=== PATIENT | female | born 1990 | race Caucasian/White ===

== ENCOUNTER 2021-02-20 02:41 | Inpatient (IN) | payer MEDICAID ==
[~2021-02-20] VITALS: Ht 160 cm; Wt 56.0 kg
--- NOTE | 2021-02-20 02:48 | NUR ---
THIS IS A 30 YO F BIB EMS FROM [facility] W/ C/O LLQ ABD PAIN SINCE THURSDAY. PT STATES SAW OBGYN AND DX W/ OVARIAN CYST. PAIN WORSE STARTING YESTERDAY. PER EMS PT WAS DX W/ SMALL BOWEL MESENTERY ABNORMALITY WHICH TRANSFERRING FACILITY BELIEVES NEEDS FURTHER WORK UP AND POSSIBLE SURGERY. WANTED SURGERY TO BE DONE HERE D/T OBGYN CAPABILITIES. PT RESTING ON GURNEY W/ CALL LIGHT IN REACH AND SIDE RAILS UPX2. FAMILY AT BEDSIDE. ERP AT BEDSIDE. KRISTOPHER CARRASCO.
[2021-02-20] MEDS ORDERED: FLUT9.9S INH (02:59)
[2021-02-20] MEDS ORDERED: OMEP-110 PO (02:59)
[2021-02-20] MEDS ORDERED: OXYB10TA26 PO (02:59)
[2021-02-20] MEDS ORDERED: MONT10TA6 PO (02:59)
[2021-02-20] MEDS ORDERED: FLUT1DIS3 INH (02:59)
[2021-02-20] MEDS ORDERED: SERT50TA PO (02:59)
--- NOTE | 2021-02-20 03:00 | NUR ---
PT DECLINING PAIN MEDS AT THIS TIME STATES "I DON'T WANT ANY PAIN MEDS, I WANT TO BE ABLE TO TALK TO THE SURGEON". PT EDUCATED THAT IT MAY BE A FEW HOURS, PT DECISION UNCHANGED.
--- NOTE | 2021-02-20 03:03 | NUR ---
PT STATES LAST PO 02/19 @ 0900AM
--- NOTE | 2021-02-20 03:05 | NUR ---
REPORT TO [facility]CRUGGS.
--- NOTE | 2021-02-20 04:44 | NUR ---
PT AMBULATED TO RESTROOM AND BACK. TOLERATED WELL.
[2021-02-20] MEDS ORDERED: MELATONIN 5 MG TABLET PO PRN (05:00)
[2021-02-20] MEDS ORDERED: ONDANSETRON 2MG/ML, 2ML IVPush PRN (05:00)
[2021-02-20] MEDS ORDERED: BISACODYL 10 MG SUPP PR PRN (05:00)
[2021-02-20] MEDS ORDERED: LABETALOL 5MG/ML, 20ML IVPush PRN (05:00)
--- NOTE | 2021-02-20 05:00 | NUR ---
PT SWABBED FOR COVID-19 AND WALKED TO LAB.
--- NOTE | 2021-02-20 05:14 | NUR ---
Pt to be admitted to HOSPITAL, room 470. Report called to KAEL FULTON.
[2021-02-20 05:23] LABS: BASOPHILS % (AUTO) 1 % (0-1); EOSINOPHILS % (AUTO) 9 % (1-7); LYMPHOCYTES % (AUTO) 31 % (22-44); MEAN CORPUSCULAR HEMOGLOBIN 30.7 pg (27.0-34.8); MEAN CORPUSCULAR HGB CONC 34.1 g/dL (32.4-35.8); MEAN PLATELET VOLUME 6.7 fL (7.4-10.4); MONOCYTES % (AUTO) 6 % (2-9); NEUTROPHILS % (AUTO) 53 % (42-75); PLATELET COUNT 293 x10^3/uL (130-400); RED BLOOD COUNT 4.59 x10^6/uL (3.82-5.3); RED CELL DISTRIBUTION WIDTH 13.2 % (9.6-15.2)
[2021-02-20 05:29] LABS: ANION GAP 6 mmol/L (5-15); CALCIUM 7.9 mg/dL (8.5-10.1); CHLORIDE 106 mmol/L (98-107); CREATININE 0.66 mg/dL (0.55-1.02)
--- NOTE | 2021-02-20 05:40 | NUR ---
[facility] CANNOT GO UPSTAIRS. I RELAYED THIS MESSAGE TO THE PT AND AND SHE BEGAN TO RAISE HER VOICE. I CALMLY STATED " I WILL TALK TO MY CHARGE NURSE TO SEE IF ANYTHING CAN BE DONE." NOTIFIED CHARGE NURSE OF SITUATION AND CHARGE NURSE SPOKE WITH PT AND FAMILY MEMBER.
--- NOTE | 2021-02-20 05:56 | NUR ---
SPOKE WITH FAMILY AND PT AGAIN REGARDING THEIR DECISION TO GO UPSTAIRS AND PT RAISED HER VOICE AND SAID "I WILL NOT BE GETTING ANY PAIN MEDICINE EVEN THOUGH I'M IN PAIN BECAUSE I WON'T BE ABLE TO ADVOCATE FOR MYSELF!" I CALMY REPLIED IF YOUR PAIN HAS CHANGED YOU NEED TO MAKE ME AWARE BECAUSE WHEN I CHECKED ON YOU PREVIOUSLY YOU TOLD ME YOU WILL NOT BE HAVING ANY PAIN MEDICINE BECAUSE I CAN HAVE A BABY WITHOUT AN EPIDURAL." RELAYED THE MESSAGE TO MY CHARGE NURSE AND WILL SPEAK TO DECORATING CONSULTANT.
--- NOTE | 2021-02-20 06:06 | NUR ---
occupational health rn: spoke with patient and patient's regarding visitation policy. Patient upset that her is not able to go up to the floor at this time. Visiting hours are from [phone] on the surgical floor, where patient is being admitted. Surgery has not yet been determined for this patient as she is supposed to see the surgeon sometime this am before the decision is made. Advised we can provide a taxi voucher for patient's in the meantime. They disagreed, stating, "so what? We can go spend hundreds of dollars on a hotel?" Contacted surgical floor charge and linen room houseperson who both state that no exception will be made. Patient not agreeable to plan, requesting from primary RN that she wanted the number for the patient advocacy. rides supervisor contacted.
--- NOTE | 2021-02-20 06:56 | NUR ---
CARE TRANSFERED. REPROT GIVEN TO KAEL RODRIGUEZ
--- NOTE | 2021-02-20 07:35 | NUR ---
Bandage Wrapping Machine Operator: I spoke with this patient as she was refusing transport to admit bed on surgical. Pt stated that told her that she would "need surgery and her could stay the night with her", I apologized for the misleading information given by and explained our visitiation policy. Pt was very abbrasive and not amenable to discussion about her plan of care. Pt stated "my had this same surgery (she is here for evaluation of ovarian cyst) and that he was in a lot of pain and I need him to be here to advocate for me because I'll be on too much pain medication to advocate for myself." I assured her that we will do our best to control her pain without over medicating her, as is standard practice. When I inquired as to the whereabouts of the couple's children, since both parents are here, the patient became very defensive, yelling "I can't believe you would even ask that". The patient's stated that their children are safe with family. Pt states that she will not stay overnight and that she wants surgery done as an out-patient. I let her know that would be a discussion between her and the surgeon, who has not been by to consult at this time. Patient to be transported to Surgical via gurney with her .
--- NOTE | 2021-02-20 07:38 | NUR ---
HOUSE SUP, KAREN AT BEDSIDE.
--- NOTE | 2021-02-20 07:58 | NUR ---
PATIENT TRANSFERRED TO FLOOR IN STABLE CONDITION VIA GURNEY WITH PROFESSIONAL SPORTS SCOUT. ALL PATIENT BELONGINGS TAKEN TO FLOOR WITH PATIENT.
[2021-02-20 08:15] VITALS: BP 124/80
[2021-02-20] MEDS ORDERED: POTASSIUM CHLORIDE 40 MEQ in SODIUM CHLORIDE 0.9% 500 ML IV ONE (09:00)
[2021-02-20] MEDS: morphine SULFATE 10 MG/ML, 1ML IVPush PRN ×2 (12:29→14:09)
[2021-02-20] MEDS: FAMOTIDINE 20 MG/2 ML IVPush SCH ×2 (12:29→21:00)
[2021-02-20 12:32] LABS: HCG UR SG 1.022 (1.003-1.030)
[2021-02-20] MEDS: LACTATED RINGERS 1,000 ML IV SCH ×2 (12:37→22:20)
[2021-02-20 15:17] VITALS: BP 110/74
[2021-02-20] MEDS ORDERED: BUPIVACAINE/PF 0.5% ONE (16:45)
[2021-02-20] MEDS ORDERED: ONDANSETRON 2MG/ML, 2ML ONE (17:06)
[2021-02-20] MEDS ORDERED: ROCURONIUM 10MG/ML,5ML ONE (17:06)
[2021-02-20] MEDS ORDERED: NEOSTIGMINE 1 MG/ML, 10ML ONE (17:06)
[2021-02-20] MEDS ORDERED: GLYCOPYRROLATE 0.2MG/1ML, 5ML ONE (17:06)
[2021-02-20] MEDS ORDERED: DEXAMETHASONE 4 MG/ML, 1ML ONE (17:06)
[2021-02-20] MEDS ORDERED: CEFAZOLIN 1,000 MG ONE (17:06)
[2021-02-20] MEDS ORDERED: MIDAZOLAM 1 MG/ML, 2ML ONE (17:06)
[2021-02-20] MEDS ORDERED: PROPOFOL 10 MG/ML, 20ML ONE (17:06)
[2021-02-20] MEDS ORDERED: CEFOTETAN 2 GM ONE (17:06)
[2021-02-20] MEDS ORDERED: FENTANYL PF 250 MCG/5ML ONE (17:06)
[2021-02-20] MEDS ORDERED: HYDROmorphone 1 MG/ML, 1ML INJ IVPush PRN (17:30)
[2021-02-20] MEDS ORDERED: PROMETHAZINE 25 MG/ML, 1ML IVPush PRN (17:30)
[2021-02-20] MEDS ORDERED: OXYcodone 5 MG/5 ML ORAL.SOL UDC PO PRN (17:30)
[2021-02-20] MEDS ORDERED: ACETAMINOPHEN 325 MG TABLET PO PRN (17:30)
[2021-02-20] MEDS ORDERED: hydrALAzine 20 MG/ML, 1ML IV PRN (17:30)
[2021-02-20] MEDS ORDERED: MEPERIDINE/PF 25MG/0.5ML IVPush PRN (17:30)
[2021-02-20] MEDS ORDERED: LABETALOL 5MG/ML, 20ML IV PRN (17:30)
[2021-02-20] MEDS ORDERED: ALBUTEROL SULFATE 2.5 MG/3 ML NPPB PRN (17:30)
[2021-02-20] MEDS ORDERED: morphine SULFATE 10 MG/ML, 1ML IVPush PRN (17:30)
[2021-02-20] MEDS ORDERED: HALOPERIDOL 5 MG/ML IV PRN (17:30)
[2021-02-20] MEDS ORDERED: FENTANYL PF 100 MCG/2ML ONE (18:29)
[2021-02-20] MEDS ORDERED: OXYcodone 5 MG/5 ML ORAL.SOL UDC ONE (18:30)
[2021-02-20] MEDS: FENTANYL PF 100 MCG/2ML IV PRN ×2 (18:32→18:45)
[2021-02-20] MEDS ORDERED: KETOROLAC 30 MG/1 ML ONE (18:33)
[2021-02-20] MEDS ORDERED: ACETAMINOPHEN 650 MG/20.3 ML UDC ONE (18:33)
[2021-02-20] MEDS: KETOROLAC 30 MG/1 ML IV PRN (18:34)
[2021-02-21] MEDS: KETOROLAC 30 MG/1 ML IV PRN ×2 (00:36→08:02)
[2021-02-21 00:47] VITALS: BP 99/61
[2021-02-21 03:43] VITALS: BP 103/64
[2021-02-21] MEDS: FAMOTIDINE 20 MG/2 ML IVPush SCH (08:02)
[2021-02-21 08:04] VITALS: BP 103/62
[2021-02-21] MEDS ORDERED: SENN1TAB94 PO (11:15)
[2021-02-21] MEDS ORDERED: OXYC1TAB14 PO (11:15)
[2021-02-21] MEDS: LACTATED RINGERS 1,000 ML IV SCH (11:43)
[2021-02-21] MEDS: morphine SULFATE 10 MG/ML, 1ML IVPush PRN (13:05)
[2021-02-21 13:07] VITALS: BP 118/76
[2021-02-21 13:45] VITALS: BP 117/74
== END 2021-02-21 14:00 | disposition home or self-care (01) | DRG 513 ==
LOC: ED 05:07 → EDIP 05:43 → 4NE 07:53
PROVIDERS: ADMIT Internal Medicine; ATTEND Internal Medicine
PROC: 3E1M38Z Irrigation of Peritoneal Cavity using Irrigating Substance, Percutaneous Approach (ICD-10-PCS; 2021-02-20)
PROC: 0UJ34ZZ Inspection of Ovary, Percutaneous Endoscopic Approach (ICD-10-PCS; principal; 2021-02-20 18:00)
DX: N83.202 Unspecified ovarian cyst, left side (principal); E87.1 Hypo-osmolality and hyponatremia; E87.6 Hypokalemia; F19.10 Other psychoactive substance abuse, uncomplicated; N80.3 Endometriosis of pelvic peritoneum; J45.909 Unspecified asthma, uncomplicated; Z20.822 Contact with and (suspected) exposure to COVID-19; Z80.8 Family history of malignant neoplasm of other organs or systems
CPT/HCPCS: 36415; 80048; 81025; 83735; 85025; 87635; 93005; 99285; G0378; J0690; J1100; J1885; J2250; J2405; J2704; J2710; J3010; J3480; J2270; J7040; J7120